=== PATIENT | male | born 1945 | race Caucasian/White ===

== ENCOUNTER 2018-01-28 09:54 | Day surgery (SDC) | payer MEDICARE, SELFPAY ==
[2018-01-28 10:32] VITALS: BP 119/69; PULSE 60; RESP 15; TEMP 36.6; O2SAT 99; BMI 28.4
[2018-01-28] MEDS: PROPARACAINE 0.5% OPHTH SOL 2 DROPS EYE-OP (10:35)
[2018-01-28] MEDS: CATARACT EYE COMPOUND (10 DROPS/SYRINGE) 3 DROPS EYE-OP (10:40)
--- NOTE | 2018-01-28 11:54 | PM.PREOP ---
Pre-operative Note Interval Note Changes: No
--- NOTE | 2018-01-28 11:55 | P.OP.PRE_ITS ---
Pre-operative Note Interval Note Changes: No
--- NOTE | 2018-01-28 11:55 | PM.OP.1 ---
Operative Date/Time/Diagnoses Pre-op diagnosis: Nuclear cataract right eye Procedure & Clinicians Procedure: Cataract Surgery Same procedure as scheduled: Yes Surgeon: Da Duke Anesthesia Type: MAC +/- and Sedation Operative Notes Procedure in detail: Patient brought to the operating suite. Tetracaine drops placed in the right eye. Patient was prepped and draped in sterile manner. Wire lid speculum was placed in the eye. Betadine drops were placed on the eye. This was irrigated. Lidocaine jelly was placed on the eye. A paracentesis port was created with a side-port blade. 0.1 mL 1% preservative free lidocaine was injected into the anterior chamber. The anterior chamber was deepened with viscoelastic. 2.6 mm keratome was used to create a temporal clear corneal incision. The iris was floppy and myotic. A 6.25 mm Malugyn ring was used to enlarge the pupil. Cystotome and Utrata forceps were used to create continuous tear capsulorrhexis. Balanced salt solution was used to hydro dissect the nucleus. The phacoemulsification handpiece was inserted and the nucleus was removed using the stop and chop technique. The irrigation aspiration handpiece was inserted and the remaining cortex was removed. Anterior chamber was deepened with viscoelastic. An Butler ZCB00 intraocular lens with a power of 16.0 was injected into the capsular bag. The Malugyn ring was removed. Irrigation aspiration handpiece was inserted and the remaining viscoelastic was removed. Incision was hydrated with balanced salt solution and found to be leak free with pressure with Weck-Kera sponges. 0.1 mL Vigamox injected anterior chamber. 0.3 mL Kenalog 10 mg was injected subconjunctivally. Lid speculum was removed. The patient left the operating room in excellent condition. Complications: none Condition: stable Disposition: same day surgery
[2018-01-28] MEDS: CHONDROIDTIN/SOD HYALURONATE 1.05 ML SYRINGE INTRAOCULA (12:09)
[2018-01-28] MEDS: MOXIFLOXACIN OPHTH DROPS 3 ML BOTTLE 2 DROPS INJ (12:09)
[2018-01-28] MEDS: PHENYLEPHRINE/LIDOCAINE VIAL (OR) 0.2 ML EYE-OP (12:09)
[2018-01-28] MEDS: BALANCED SALT IRRIG SOLN NO.2 500 ML, EPINEPHrine 1 MG IRR (12:10)
[2018-01-28] MEDS: LIDOCAINE JELLY 2% 5 ML 1 APPLIC TOP (12:10)
[2018-01-28] MEDS: TRIAMCINOLONE 50 MG/5 ML VIAL INJ (12:10)
[2018-01-28] MEDS: TETRACAINE 0.5% OPHTH DROPS 15 ML 2 DROPS EYE-RIGHT (12:10)
[2018-01-28 12:31] VITALS: BP 111/59; PULSE 58; RESP 16; TEMP 36.4; O2SAT 99
--- NOTE | 2018-01-28 12:38 | SUR.PHASEII ---
Pt waiting for spouse's procedure to be completed.
== END 2018-01-28 12:38 | disposition home or self-care (01) ==
LOC: OR 09:57
PROVIDERS: PCP Internal Medicine; Visit Provider Ophthalmology
DX: H25.11 Age-related nuclear cataract, right eye (principal); J44.9 Chronic obstructive pulmonary disease, unspecified; I10 Essential (primary) hypertension
CPT/HCPCS: J0171; J2250; J3010; J3301

== ENCOUNTER 2018-02-11 09:22 | Day surgery (SDC) | payer MEDICARE, SELFPAY ==
[2018-02-11] MEDS: PROPARACAINE 0.5% OPHTH SOL 2 DROPS EYE-OP (10:15)
[2018-02-11 10:20] VITALS: BP 109/67; PULSE 65; RESP 16; TEMP 36.2; BMI 27.8
[2018-02-11] MEDS: CATARACT EYE COMPOUND (10 DROPS/SYRINGE) 3 DROPS EYE-OP (10:20)
--- NOTE | 2018-02-11 11:18 | P.OP.PRE_ITS ---
Pre-operative Note Interval Note Changes: No
--- NOTE | 2018-02-11 11:18 | PM.PREOP ---
Pre-operative Note Interval Note Changes: No
--- NOTE | 2018-02-11 11:18 | PM.OP.1 ---
Operative Date/Time/Diagnoses Pre-op diagnosis: Nuclear Cataract Left eye Post-op diagnosis: same Procedure & Clinicians Surgeon: Da Duke Anesthesia Type: MAC +/- and Sedation Operative Notes Procedure in detail: Patient brought to the operating suite. Tetracaine drops placed in the left eye. Patient was prepped and draped in sterile manner. Wire lid speculum was placed in the eye. Betadine drops were placed on the eye. This was irrigated. Lidocaine jelly was placed on the eye. A paracentesis port was created with a side-port blade. 0.1 mL 1% preservative free lidocaine was injected into the anterior chamber. The anterior chamber was deepened with viscoelastic. 2.6 mm keratome was used to create a temporal clear corneal incision. The pupil was floppy and miotic. A 6.25 mm Malyugin ring was used to enlarge the pupil. Cystotome and Utrata forceps were used to create continuous tear capsulorrhexis. Balanced salt solution was used to hydro dissect the nucleus. The phacoemulsification handpiece was inserted and the nucleus was removed using the stop and chop technique. The irrigation aspiration handpiece was inserted and the remaining cortex was removed. Anterior chamber was deepened with viscoelastic. An Butler ZCB00 intraocular lens with a power of 16.0 was injected into the capsular bag. The Mayugin ring was removed. Irrigation aspiration handpiece was inserted and the remaining viscoelastic was removed. Incision was hydrated with balanced salt solution and found to be leak free with pressure with Weck-Kera sponges. 0.1 mL Vigamox injected anterior chamber. 0.3 mL Kenalog 10 mg was injected subconjunctivally. Lid speculum was removed. The patient left the operating room in excellent condition. Complications: none Condition: stable Disposition: same day surgery
--- NOTE | 2018-02-11 11:27 | SUR.OPER ---
Supine on eye stretcher, head on extension cradle secured with tape. Arms tucked at sides with blanket. Pillow under knees.
[2018-02-11] MEDS: PHENYLEPHRINE/LIDOCAINE VIAL (OR) 0.2 ML EYE-OP (11:30)
[2018-02-11] MEDS: LIDOCAINE JELLY 2% 5 ML 1 APPLIC TOP (11:31)
[2018-02-11] MEDS: MOXIFLOXACIN OPHTH DROPS 3 ML BOTTLE 2 DROPS INJ (11:31)
[2018-02-11] MEDS: TRIAMCINOLONE 50 MG/5 ML VIAL INJ (11:31)
[2018-02-11] MEDS: BALANCED SALT IRRIG SOLN NO.2 500 ML, EPINEPHrine 1 MG IRR (11:32)
[2018-02-11] MEDS: CHONDROIDTIN/SOD HYALURONATE 1.05 ML SYRINGE INTRAOCULA (11:32)
[2018-02-11] MEDS: TETRACAINE 0.5% OPHTH DROPS 15 ML 2 DROPS EYE-LEFT (11:32)
[2018-02-11 11:52] VITALS: BP 98/65; PULSE 64; RESP 16; TEMP 36.5; O2SAT 99
[2018-02-11 11:59] VITALS: BP 109/68; PULSE 62
== END 2018-02-11 12:07 ==
LOC: OR 09:24
PROVIDERS: PCP Internal Medicine; Visit Provider Ophthalmology
DX: H25.12 Age-related nuclear cataract, left eye (principal); J44.9 Chronic obstructive pulmonary disease, unspecified; I10 Essential (primary) hypertension
CPT/HCPCS: J0171; J2250; J3010; J3301

== ENCOUNTER → 2018-12-29 09:39 | Outpatient (CLI) | payer MEDICARE, SELFPAY ==
--- NOTE | 2019-01-05 11:20 | PM.PFT.1 ---
Pulmonary Function Test Referral & Results Date Patient Seen: 12/29/18 Requesting provider: Eddie Galvez Results: The spirometry demonstrates an FVC of 3.89 L which is 85% of predicted. The FEV1 was measured at 2.59 L which is 78% of predicted. The FEV1/FVC ratio was 67 which is 92% of predicted. Following the administration of bronchodilator there was no appreciable change. Lung volumes show an SVC of 4.03 L which is 84% of predicted. The diffusing capacity was measured at 17.58 which is 50% of predicted. No hemoglobin value was provided, so no correction for potential anemia could be made, if appropriate. The maximum voluntary ventilation was reduced Interpretation: This study demonstrates mild obstructive lung disease based on reduction in FEV1. There is also slight reduction SVC suggesting element of restrictive lung disease The reduction in diffusing capacity is much more significant suggesting significant disease at the capillary alveolar level Clinical correlation suggested
== END ==
PROVIDERS: PCP Student in an Organized Health Care Education/Training Program; Visit Provider Student in an Organized Health Care Education/Training Program
DX: R05 Cough (principal); J44.9 Chronic obstructive pulmonary disease, unspecified
CPT/HCPCS: 94060; 94726; 94729